=== PATIENT | male | born 1955 | race Caucasian/White ===

== ENCOUNTER → 2017-04-25 | Outpatient (CLI) | payer OTHER ==
[~2017-04-25] MED LIST: ASPI-496 PO; CLOP75TA22 PO; ENAL5TAB PO; FAMO20TA7 PO; GABA300C10 PO; HYDR25TA6 PO; IBUP200C PO; METO25TA35 PO; NIAC500T9 PO; OMEG-124 PO; RED600CA2 PO; TICA90TA PO; UBID30CA9 PO; potassium PO
== END | disposition home or self-care (01) ==
LOC: CVU 07:34
PROVIDERS: ATTEND Internal Medicine Cardiovascular Disease
DX: I25.10 Atherosclerotic heart disease of native coronary artery without angina pectoris (principal); I65.23 Occlusion and stenosis of bilateral carotid arteries; I10 Essential (primary) hypertension; E78.2 Mixed hyperlipidemia
CPT/HCPCS: 93880; 93978

== ENCOUNTER → 2017-06-13 | Outpatient (CLI) | payer OTHER ==
[~2017-06-13] MED LIST changes: -CLOP75TA22 PO; +CLOP75TA52 PO; -IBUP200C PO; +IBUP200C5 PO; +REGADENOSON 0.4 MG/5 ML SYRINGE ONE
== END | disposition home or self-care (01) ==
LOC: CFH 08:19
PROVIDERS: ATTEND Nurse Practitioner Family
DX: I25.10 Atherosclerotic heart disease of native coronary artery without angina pectoris (principal); I10 Essential (primary) hypertension
CPT/HCPCS: 78452; 93017; A9502; J2785

== ENCOUNTER 2017-06-30 07:03 | Observation (INO) | payer OTHER ==
[2017-06-29 12:25] VITALS: BP 146/90
[2017-06-29 12:35] LABS: HEMATOCRIT 52.6 % (39.2-51.8); WHITE BLOOD COUNT 8.4 x10^3/uL (3.4-10)
[2017-06-29 12:55] LABS: ASPARTATE AMINO TRANSFERASE 40 U/L (15-37); BLOOD UREA NITROGEN 13 mg/dL (7-18)
[~2017-06-30] VITALS: Ht 167.6 cm; Wt 103.0 kg
[~2017-06-30 07:03] MED LIST changes: +ALIR75PE INJ; +CHOL100012 PO; +MULT-717 PO; -REGADENOSON 0.4 MG/5 ML SYRINGE ONE
[2017-06-30] MEDS ORDERED: SODIUM CHLORIDE 0.9% 1,000 ML IV SCH (07:16)
[2017-06-30] MEDS ORDERED: MIDAZOLAM 1 MG/ML, 5ML ONE ×2 (08:47→09:54)
[2017-06-30] MEDS ORDERED: NITROGLYCERIN 5 MG/ML, 10ML ONE (08:48)
[2017-06-30] MEDS ORDERED: FENTANYL PF 100 MCG/2ML ONE ×2 (08:48→09:54)
[2017-06-30] MEDS ORDERED: BIVALIRUDIN 250 MG ONE ×2 (08:48→10:07)
[2017-06-30] MEDS ORDERED: LIDOCAINE 2%, 20ML ONE (08:48)
[2017-06-30] MEDS ORDERED: VERAPAMIL 2.5 MG/ML, 2ML ONE (08:48)
[2017-06-30] MEDS ORDERED: HEPARIN 1,000 UNITS/ML, 10ML ONE (08:48)
[2017-06-30] MEDS ORDERED: CLOPIDOGREL 75 MG TABLET ONE (10:06)
[2017-06-30 10:52] VITALS: BP 143/86
[2017-06-30] MEDS: GABAPENTIN 300 MG CAPSULE PO SCH ×2 (11:00→20:02)
[2017-06-30] MEDS: ENALAPRIL 10 MG TABLET PO SCH ×2 (11:00→20:01)
[2017-06-30] MEDS ORDERED: ZOLPIDEM 5MG TABLET PO PRN (11:00)
[2017-06-30] MEDS ORDERED: ONDANSETRON 2MG/ML, 2ML IVPush PRN (11:00)
[2017-06-30] MEDS ORDERED: BIVALIRUDIN 250 MG in DEXTROSE 5% 50 ML IV SCH (11:00)
[2017-06-30] MEDS: METOPROLOL TARTRATE 25 MG TABLET PO SCH ×2 (11:00→20:02)
[2017-06-30] MEDS ORDERED: ACETAMINOPHEN 325 MG TABLET PO PRN (11:30)
[2017-06-30] MEDS ORDERED: ASPIRIN 325 MG TABLET PO ONE (11:30)
[2017-06-30] MEDS ORDERED: BISACODYL 10 MG SUPP PR PRN (11:30)
[2017-06-30] MEDS: SODIUM CHLORIDE 0.9% 1,000 ML IV SCH ×2 (12:00→20:00)
[2017-06-30 14:25] VITALS: BP 121/78
[2017-06-30 19:18] VITALS: BP 150/82
[2017-07-01 00:30] VITALS: BP 127/79
[2017-07-01] MEDS: SODIUM CHLORIDE 0.9% 1,000 ML IV SCH ×2 (05:26→08:36)
[2017-07-01 05:31] LABS: BLOOD UREA NITROGEN 15 mg/dL (7-18)
[2017-07-01 07:54] VITALS: BP 138/96
[2017-07-01] MEDS: GABAPENTIN 300 MG CAPSULE PO SCH (08:35)
[2017-07-01] MEDS: ENALAPRIL 10 MG TABLET PO SCH (08:35)
[2017-07-01] MEDS: METOPROLOL TARTRATE 25 MG TABLET PO SCH (08:35)
[2017-07-01] MEDS ORDERED: [UNRECOGNIZED DRUG - REMARK] HOMEMEDPO SCH (09:00)
[2017-07-01] MEDS ORDERED: HYDROCHLOROTHIAZIDE 25 MG TABLET PO SCH (09:00)
[2017-07-01] MEDS ORDERED: CLOPIDOGREL 75 MG TABLET PO SCH (09:00)
[2017-07-01] MEDS ORDERED: ASPIRIN 81 MG TABLET EC PO SCH (09:00)
[2017-07-01] MEDS ORDERED: FAMOTIDINE 20 MG TABLET PO SCH (09:00)
[2017-07-01 11:00] VITALS: BP 131/82
[2017-07-02] MEDS ORDERED: LUT HOMEMEDPO SCH (09:00)
[2017-07-02] MEDS ORDERED: CHOLECALCIFEROL 1,000 UNIT TABLET PO SCH (09:00)
[2017-07-02] MEDS ORDERED: [UNRECOGNIZED DRUG - OTHER] HOMEMEDPO SCH (09:00)
[2017-07-02] MEDS ORDERED: LYCOPENE T HOMEMEDPO SCH (09:00)
[2017-07-02] MEDS ORDERED: MULTIVITS MIN HOMEMEDPO SCH (09:00)
== END 2017-07-01 11:57 | disposition home or self-care (01) ==
LOC: CACL 07:03 → ORIP 10:33 → 5SO 10:41
PROVIDERS: ADMIT Internal Medicine Cardiovascular Disease; ATTEND Internal Medicine Cardiovascular Disease
DX: I25.110 Atherosclerotic heart disease of native coronary artery with unstable angina pectoris (principal); T82.855A Stenosis of coronary artery stent, initial encounter; I10 Essential (primary) hypertension; E78.2 Mixed hyperlipidemia; Y83.1 Surgical operation with implant of artificial internal device as the cause of abnormal reaction of the patient, or of later complication, without mention of misadventure at the time of the procedure
CPT/HCPCS: 36415; 71020; 80048; 80053; 82040; 85025; 93005; 93458; 93571; 99156; 99157; C1725; C1769; C1874; C1887; C1894; C9600; G0378; J0583; J1644; J2250; J3010; J3490; Q9967